=== PATIENT | male | born 1960 | race Caucasian/White ===

== ENCOUNTER 2016-10-29 15:01 | Emergency (ER) | payer SELFPAY ==
[2016-10-29] MEDS ORDERED: BABY ASPIRIN 81 MG CHEW PO ONE (15:10)
[2016-10-29] MEDS ORDERED: Nitrostat 0.4 MG (ED) SL ONE (15:10)
[2016-10-29] MEDS ORDERED: Sodium Chloride 0.9% 1000 ML 1,000 ML IV SCH (15:15)
[2016-10-29] MEDS ORDERED: Sodium Chloride 0.9% 1000 ML 1,000 ML ONE (15:25)
[2016-10-29] MEDS ORDERED: BABY ASPIRIN 81 MG CHEW ONE ×2 (15:25→15:27)
--- NOTE | 2016-10-29 15:32 | ERPHSYRPT ---
- History of Present Illness Time Seen by Provider: 10/29/16 15:29 Historian: patient Exam Limitations: no limitations Patient Subjective Stated Complaint: PT COMPLAINS OF CHEST PAIN TO BOTH RIGHT AND LEFT SIDE. OF CHEST STATES DOES RADIATES UP INTO BILATERAL SIDES OF HIS JAW PT DENIES ANY CARDIAC HISTORY STATES THAT HE. DOES TAKE A BABY ASA TODAY TOOK ONE THIS AM. STATES THAT HE DID GET SOB AND NAUSEATED WHEN THE PAIN STARTED Triage Nursing Assessment: PT ALERT WARM AND DRY RESP EASY NON LABORED EKG DONE AT BEDSIDE. Physician History: 56-year-old male came to the emergency room with complaining of bilateral lower chest pain which is soft stabbing in nature, radiating to the both side of the jaw. Patient denies any nausea, vomiting or diaphoresis. Patient did not have his same type of pain before. Timing/Duration: today Activities at Onset: none Quality: stabbing Location: substernal Chest Pain Radiation: jaw Severity of Pain-Max: moderate Severity of Pain-Current: moderate Modifying Factors: Improves With: nothing Associated Symptoms: denies symptoms, No palpitations, No shortness of breath, No hurts to breathe, No diaphoresis Aspirin Treatment Today: 81 mg x 1 Allergies/Adverse Reactions: No Known Drug Allergies Allergy (Unverified 03/28/12 16:57) Home Medications: Aspirin [Aspir 81] DAILY 03/28/12 [History] Atenolol DAILY 03/28/12 [History] Glipizide Xl 10 mg [Glucotrol Xl 10 MG] DAILY 03/28/12 [History] Metformin HCl 1000 mg [Glucophage 1000 MG] DAILY 03/28/12 [History] Hx Tetanus, Diphtheria Vaccination/Date Given: Yes Hx Influenza Vaccination/Date Given: No Hx Pneumococcal Vaccination/Date Given: No Immunizations Up to Date: Yes - Review of Systems Constitutional: No Fever, No Chills Eyes: No Symptoms Ears, Nose, & Throat: No Symptoms Respiratory: No Cough, No Dyspnea Cardiac: Chest Pain, No Edema, No Syncope Abdominal/Gastrointestinal: No Abdominal Pain, No Nausea, No Vomiting, No Diarrhea Genitourinary Symptoms: No Dysuria Musculoskeletal: No Back Pain, No Neck Pain Skin: No Rash Neurological: No Dizziness, No Focal Weakness, No Sensory Changes Psychological: No Symptoms Endocrine: No Symptoms All Other Systems: Reviewed and Negative - Past Medical History Pertinent Past Medical History: Yes Neurological History: TIA ENT History: No Pertinent History Cardiac History: Arrhythmia Respiratory History: No Pertinent History Endocrine Medical History: Diabetes Type II Musculoskeletal History: No Pertinent History GI Medical History: No Pertinent History History: No Pertinent History Psycho-Social History: No Pertinent History Male Reproductive Disorders: No Pertinent History Other Medical History: SLEEP APNEA - Past Surgical History Past Surgical History: Yes Cardiac: Cardiac Catheterization - Social History Smoking Status: Former smoker Exposure to second hand smoke: No Drug Use: none Patient Lives Alone: No - Nursing Vital Signs Nursing Vital Signs: Initial Vital Signs Temperature 97.9 F Temperature Source Oral Pulse Rate 81 Respiratory Rate 18 Blood Pressure [] 125/73 Pain Intensity 5 - Physical Exam General Appearance: no apparent distress, alert Eye Exam: PERRL/EOMI, eyes nml inspection Ears, Nose, Throat Exam: normal ENT inspection, moist mucous membranes Neck Exam: normal inspection, non-tender, supple, full range of motion Respiratory Exam: normal breath sounds, lungs clear, No respiratory distress Cardiovascular Exam: regular rate/rhythm, normal heart sounds Gastrointestinal/Abdomen Exam: soft, No tenderness, No mass Back Exam: normal inspection, No CVA tenderness, No vertebral tenderness Extremity Exam: normal inspection, normal range of motion Neurologic Exam: alert, oriented x 3, cooperative, normal mood/affect, sensation nml, No motor deficits Skin Exam: normal color, warm, dry SpO2: 95 Oxygen Delivery: Room Air - Course Nursing assessment & vital signs reviewed: Yes EKG Interpreted by Me: Sinus Rhythm - Radiology Exams Chest X-ray Interpretation: Reviewed by me, Negative Ordered Tests: Active Orders 24 hr Category Date Time Status EKG-ER Only STAT Care 10/29/16 15:10 Active CHEST 1 VIEW (PORTABLE) Stat Exams 10/29/16 15:11 Taken CBC W DIFF Stat Lab 10/29/16 15:32 Completed CMP Stat Lab 10/29/16 15:32 Completed TROPONIN Q3H Lab 10/29/16 15:30 Completed TROPONIN Q3H Lab 10/29/16 18:15 Ordered TROPONIN Q3H Lab 10/29/16 21:15 Ordered TROPONIN Q3H Lab 10/30/16 00:15 Ordered TROPONIN Q3H Lab 10/30/16 03:15 Ordered Medication Summary Generic Name Dose Route Start Last Admin Trade Name Freq PRN Reason Stop Dose Admin Sodium Chloride 1,000 mls @ 50 mls/hr 10/29/16 15:15 10/29/16 15:28 Sodium Chloride 0.9% 1000 Ml IV 11/28/16 15:14 50 mls/hr .Q20H OLEG Administration Discontinued Medications Generic Name Dose Route Start Last Admin Trade Name Kasie PRN Reason Stop Dose Admin Aspirin 324 mg 10/29/16 15:10 10/29/16 15:28 Baby Aspirin 81 Mg Chew PO 10/29/16 15:11 324 mg STAT ONE Administration Aspirin Confirm 10/29/16 15:25 Baby Aspirin 81 Mg Chew Administered 10/29/16 15:26 Dose 81 mg .ROUTE .STK-MED ONE Aspirin Confirm 10/29/16 15:27 Baby Aspirin 81 Mg Chew Administered 10/29/16 15:28 Dose 243 mg .ROUTE .STK-MED ONE Nitroglycerin 0.4 mg 10/29/16 15:10 10/29/16 15:24 Nitrostat 0.4 Mg (Ed) SL 10/29/16 15:11 0.4 mg STAT ONE Administration Lab/Rad Data: Laboratory Result Diagrams 10/29/16 15:32 10/29/16 15:32 Laboratory Results 10/29/16 10/29/16 10/29/16 Range/Units 15:32 15:32 15:30 WBC 8.5 (4.0-10.5) K/mm3 RBC 4.89 (4.1-5.6) M/mm3 Hgb 13.7 (12.5-18.0) gm/dl Hct 41.5 L (42-50) % MCV 84.9 (78-100) fl MCH 28.0 (26-32) pg MCHC 33.0 (32-36) g/dl RDW 15.1 H (11.5-14.0) % Plt Count 216 (150-450) K/mm3 MPV 10.1 H (6-9.5) fl Gran % 62.2 (36.0-66.0) % Lymphocytes % 28.3 (24.0-44.0) % Monocytes % 6.6 (0.0-12.0) % Eosinophils % 2.8 (0.00-5.0) % Basophils % 0.1 (0.0-0.4) % Basophils # 0.01 (0-0.4) Sodium 141 (136-145) mEq/L Potassium 4.5 (3.5-5.1) mEq/L Chloride 103 (98-107) mEq/L Carbon Dioxide 29.9 (21-32) mEq/L Anion Gap 12.7 (5-15) MEQ/L BUN 15 (9-20) mg/dL Creatinine 1.11 (0.55-1.30) mg/dl Estimated GFR > 60 ML/MIN Glucose 188 H (70-110) MG/DL Calcium 8.9 (8.5-10.1) mg/dL Total Bilirubin 0.40 (0.2-1.0) mg/dL AST 18 (15-37) U/L ALT 43 (12-78) U/L Alkaline Phosphatase 72 (46-116) U/L Troponin I < 0.017 (0.000-0.056) ng/ml Serum Total Protein 6.9 (6.4-8.2) gm/dL Albumin 3.3 L (3.4-5.0) g/dL - Progress Progress: improved Air Movement: good Blood Culture(s) Obtained: No Antibiotics given: No Counseled pt/family regarding: lab results, diagnosis, need for follow-up, rad results - Departure Time of Disposition: 16:41 Departure Disposition: Home Clinical Impression: Chest pain of uncertain etiology Type 2 diabetes mellitus Qualifiers: Diabetes mellitus complication status: with unspecified complications Diabetes mellitus prison insulin use: without buttermaker continuous churn use Qualified Code(s): E11.8 - Type 2 diabetes mellitus with unspecified complications Hypertension Qualifiers: Hypertension type: essential hypertension Qualified Code(s): I10 - Essential ( primary) hypertension Condition: Stable Critical Care Time: Yes Critical Care Time(excluding separately billable procedures): 30-74 minutes Referrals: GERRY KAPADIA [Primary Care Provider] - Instructions: Chest Pain Additional Instructions: Please follow the instructions given to you. Please take your medication as prescribed if given. If symptoms recur or get worse, come back to the emergency room if you cannot reach your primary care physician, or call your primary care physician for an appointment. Again if your symptoms get worse, come back to the emergency room. Thanks for visiting emergency room, and let us take care of you.
[2016-10-29 15:37] LABS: BASOPHIL % 0.1 % (0.0-0.4); Eosinophil % 2.8 % (0.00-5.0); Granulocytes % 62.2 % (36.0-66.0); Lymphocytes % 28.3 % (24.0-44.0); Mean Cell Volume 84.9 fl (78-100); Mean Platelet Volume 10.1 fl (6-9.5); Monocytes % 6.6 % (0.0-12.0); Platelet Count 216 K/mm3 (150-450); Red Blood Count 4.89 M/mm3 (4.1-5.6); Red Cell Distribution Width 15.1 % (11.5-14.0); White Blood Count 8.5 K/mm3 (4.0-10.5)
[2016-10-29 16:09] LABS: ALBUMIN 3.3 g/dL (3.4-5.0); ALKALINE PHOSPHATASE 72 U/L (46-116); ANION GAP 12.7 MEQ/L (5-15); BLOOD UREA NITROGEN 15 mg/dL (9-20); CHLORIDE 103 mEq/L (98-107); Carbon Dioxide 29.9 mEq/L (21-32); Glucose 188 MG/DL (70-110); Potassium 4.5 mEq/L (3.5-5.1); SGOT/AST 18 U/L (15-37); SGPT/ALT 43 U/L (12-78); SODIUM 141 mEq/L (136-145); Total Protein 6.9 gm/dL (6.4-8.2)
[2016-10-29 17:04] VITALS: BP 139/81; PULSE 72; O2SAT 99
--- NOTE | 2016-10-29 20:24 | XRAY ---
Indication: Chest pain. Comparison: None Portable chest demonstrates scattered calcified granulomas. No focal infiltrate, consolidation, or large effusion. Heart is not enlarged. Bony thorax intact. Impression: Nonacute chest. Evidence for old granulomatous disease.
== END 2016-10-29 17:03 | disposition home or self-care (01) ==
LOC: ED 15:01
DX: R07.89 Other chest pain (principal); E11.8 Type 2 diabetes mellitus with unspecified complications; I10 Essential (primary) hypertension; Z79.899 Other long term (current) drug therapy; Z79.84 Long term (current) use of oral hypoglycemic drugs; Z79.82 Long term (current) use of aspirin
CPT/HCPCS: 36000; 36415; 71010; 80053; 84484; 85025; 93005; 93041; 96360; 99284; 99285; A9270-GY

== ENCOUNTER 2019-01-09 10:57 | Emergency (ER) | payer OTHER ==
--- NOTE | 2019-01-09 11:19 | ERPHSYRPT ---
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 pt has no cardiac hx. pt took a ntg of his and he now arrives with complete resolution of his cp. pt is on plavix but has not taken any of his meds this am. pt is under a lot stress today. Timing/Duration: today Quality: sharpness, stabbing Location: other (bilat chest) Chest Pain Radiation: neck Severity of Pain-Max: mild Severity of Pain-Current: none Modifying Factors: Improves With: nitroglycerin (resolved) Associated Symptoms: denies symptoms Prior Chest Pain/Cardiac Workup: no prior chest pain, no prior cardiac workup Nitro Today/Relief: 0.4 mg x 1, complete relief Aspirin Treatment Today: 81 mg x 1 Allergies/Adverse Reactions: prochlorperazine [From Compazine] Adverse Reaction (Verified 01/09/19 11:17) Home Medications: Glipizide Xl 10 mg [Glucotrol Xl 10 MG] 10 mg BID 03/28/12 [History] Metformin HCl 1000 mg [Glucophage 1000 MG] 1,000 mg BID 03/28/12 [History] Atorvastatin Calcium 10 mg DAILY 01/09/19 [History] Clopidogrel Bisulfate [Plavix] 75 tablet DAILY 01/09/19 [History] Lisinopril 20 mg [Zestril 20 MG] 60 mg DAILY 01/09/19 [History] Munith-3 Fatty Acids/Fish Oil [Fish Oil 1,000 mg Capsule] 1,000 mg BID 01/09/19 [ History] Sertraline HCl [Zoloft] 100 mg PO DAILY 01/09/19 [History] Hx Tetanus, Diphtheria Vaccination/Date Given: Yes Hx Influenza Vaccination/Date Given: No Hx Pneumococcal Vaccination/Date Given: No - Review of Systems Constitutional: No Symptoms Eyes: No Symptoms Ears, Nose, & Throat: No Symptoms Respiratory: No Symptoms Cardiac: Chest Pain Abdominal/Gastrointestinal: No Symptoms Genitourinary Symptoms: No Symptoms Musculoskeletal: No Symptoms Skin: No Symptoms Neurological: No Symptoms Psychological: No Symptoms Endocrine: No Symptoms Hematologic/Lymphatic: No Symptoms Immunological/Allergic: No Symptoms All Other Systems: Reviewed and Negative - Past Medical History Pertinent Past Medical History: Yes Neurological History: TIA ENT History: No Pertinent History Cardiac History: Arrhythmia Respiratory History: No Pertinent History Endocrine Medical History: Diabetes Type II Musculoskeletal History: No Pertinent History GI Medical History: No Pertinent History History: No Pertinent History Psycho-Social History: No Pertinent History Male Reproductive Disorders: No Pertinent History Other Medical History: SLEEP APNEA - Past Surgical History Past Surgical History: Yes Cardiac: Cardiac Catheterization - Social History Smoking Status: Former smoker Exposure to second hand smoke: No Drug Use: none Patient Lives Alone: No - Nursing Vital Signs Nursing Vital Signs: Initial Vital Signs Temperature 97.4 F 01/09/19 10:58 Pulse Rate 81 01/09/19 10:58 Respiratory Rate 20 01/09/19 10:58 Blood Pressure 160/76 01/09/19 10:58 O2 Sat by Pulse Oximetry 95 01/09/19 10:58 Pain Scale Pain Intensity 0 - Physical Exam General Appearance: no apparent distress, alert, anxiety Eye Exam: PERRL/EOMI, eyes nml inspection Ears, Nose, Throat Exam: normal ENT inspection, moist mucous membranes Neck Exam: normal inspection, non-tender, supple, full range of motion Respiratory Exam: normal breath sounds, lungs clear, airway intact, No chest tenderness, No respiratory distress Cardiovascular Exam: regular rate/rhythm, normal heart sounds, normal peripheral pulses Gastrointestinal/Abdomen Exam: soft, normal bowel sounds, No tenderness Rectal Exam: not done Back Exam: normal inspection, normal range of motion, No CVA tenderness, No vertebral tenderness Extremity Exam: normal inspection, normal range of motion, pelvis stable Neurologic Exam: alert, oriented x 3, cooperative, quality control director II-XII nml as tested Skin Exam: normal color, warm, dry Lymphatic Exam: No adenopathy SpO2 Interpretation: normal O2 Delivery: Room Air - Course Nursing assessment & vital signs reviewed: Yes EKG Interpreted by Me: RATE (80), NORMAL INTERVALS, NORMAL QRS, Other ( comparison ekg 10/29/16. new findings of SI/QIII pattern otherwise no change. no acute ischemic changes. ) Ordered Tests: Active Orders 24 hr Category Date Time Status Customer Program Specialist STAT Care 01/09/19 11:19 Active EKG-ER Only STAT Care 01/09/19 11:19 Active IV Insertion STAT Care 01/09/19 11:19 Active Pulse Oximetry (ED) STAT Care 01/09/19 11:19 Active CHEST 1 VIEW (PORTABLE) Stat Exams 01/09/19 11:19 Completed CBC W DIFF Stat Lab 01/09/19 11:42 Completed CMP Stat Lab 01/09/19 11:42 Completed D-DIMER QUANTITATION Stat Lab 01/09/19 11:42 Completed NT PRO BNP Stat Lab 01/09/19 11:42 Completed PROTIME WITH INR Stat Lab 01/09/19 11:42 Completed TROPONIN Q3H Lab 01/09/19 11:42 Completed TROPONIN Q3H Lab 01/09/19 14:30 Ordered TROPONIN Q3H Lab 01/09/19 17:30 Ordered TROPONIN Q3H Lab 01/09/19 20:30 Ordered TROPONIN Q3H Lab 01/09/19 23:30 Ordered Medication Summary Discontinued Medications Generic Name Dose Route Start Last Admin Trade Name Freq PRN Reason Stop Dose Admin Aspirin 243 mg 01/09/19 11:19 01/09/19 11:31 Baby Aspirin 81 Mg Chew PO 01/09/19 11:20 243 mg STAT ONE Administration Aspirin Confirm 01/09/19 11:29 Baby Aspirin 81 Mg Chew Administered 01/09/19 11:30 Dose 243 mg .ROUTE .Buru Buru-MED ONE Lab/Rad Data: Laboratory Result Diagrams 01/09/19 11:42 01/09/19 11:42 Laboratory Results 01/09/19 01/09/19 01/09/19 Range/Units 11:42 11:42 11:42 WBC (4.0-10.5) K/mm3 RBC (4.1-5.6) M/mm3 Hgb (12.5-18.0) gm/dl Hct (42-50) % MCV (78-100) fl MCH (26-32) pg MCHC (32-36) g/dl RDW (11.5-14.0) % Plt Count (150-450) K/mm3 MPV (6-9.5) fl Gran % (36.0-66.0) % Eos # (Auto) (0-0.5) Absolute Lymphs (auto) (1.0-4.6) Absolute Monos (auto) (0.0-1.3) Lymphocytes % (24.0-44.0) % Monocytes % (0.0-12.0) % Eosinophils % (0.00-5.0) % Basophils % (0.0-0.4) % Absolute Granulocytes (1.4-6.9) Basophils # (0-0.4) PT 13.0 H (8.83-12.87) SECONDS INR 1.15 (0.8-3.0) D-Dimer 221 (215-500) ng/mL Sodium 135 L (137-145) mmol/L Potassium 4.5 (3.5-5.1) mmol/L Chloride 98 (98-107) mmol/L Carbon Dioxide 25 (22-30) mmol/L Anion Gap 16.6 H (5-15) MEQ/L BUN 16 (9-20) mg/dL Creatinine 0.66 (0.66-1.25) mg/dL Estimated GFR > 60.0 ML/MIN Glucose 423 H (74-106) mg/dL Calcium 9.3 (8.4-10.2) mg/dL Total Bilirubin 0.80 (0.2-1.3) mg/dL AST 38 (17-59) U/L ALT 51 H (0-50) U/L Alkaline Phosphatase 132 H (38-126) U/L Troponin I < 0.012 (0.000-0.034) ng/mL NT-Pro-B Natriuret Pep 17.4 (0-900) pg/mL Serum Total Protein 7.5 (6.3-8.2) g/dL Albumin 4.0 (3.5-5.0) g/dL 01/09/19 Range/Units 11:42 WBC 8.0 (4.0-10.5) K/mm3 RBC 5.36 (4.1-5.6) M/mm3 Hgb 14.5 (12.5-18.0) gm/dl Hct 44.7 (42-50) % MCV 83.4 (78-100) fl MCH 27.1 (26-32) pg MCHC 32.4 (32-36) g/dl RDW 15.2 H (11.5-14.0) % Plt Count 192 (150-450) K/mm3 MPV 10.8 H (6-9.5) fl Gran % 66.4 H (36.0-66.0) % Eos # (Auto) 0.17 (0-0.5) Absolute Lymphs (auto) 1.98 (1.0-4.6) Absolute Monos (auto) 0.53 (0.0-1.3) Lymphocytes % 24.8 (24.0-44.0) % Monocytes % 6.6 (0.0-12.0) % Eosinophils % 2.1 (0.00-5.0) % Basophils % 0.1 (0.0-0.4) % Absolute Granulocytes 5.28 (1.4-6.9) Basophils # 0.01 (0-0.4) PT (8.83-12.87) SECONDS INR (0.8-3.0) D-Dimer (215-500) ng/mL Sodium (137-145) mmol/L Potassium (3.5-5.1) mmol/L Chloride (98-107) mmol/L Carbon Dioxide (22-30) mmol/L Anion Gap (5-15) MEQ/L BUN (9-20) mg/dL Creatinine (0.66-1.25) mg/dL Estimated GFR ML/MIN Glucose (74-106) mg/dL Calcium (8.4-10.2) mg/dL Total Bilirubin (0.2-1.3) mg/dL AST (17-59) U/L ALT (0-50) U/L Alkaline Phosphatase (38-126) U/L Troponin I (0.000-0.034) ng/mL NT-Pro-B Natriuret Pep (0-900) pg/mL Serum Total Protein (6.3-8.2) g/dL Albumin (3.5-5.0) g/dL - Progress Progress: improved Air Movement: good Progress Note: 01/09/19 12:26 cxr-no acute process Blood Culture(s) Obtained: No Antibiotics given: No Counseled pt/family regarding: lab results, diagnosis, need for follow-up, rad results - Departure Departure Disposition: Home Clinical Impression: Chest pain Condition: Stable Critical Care Time: No Referrals: GERRY KAPADIA [ACTIVE STAFF] - Additional Instructions: Take your medications as prescribed. follow up with your primary doctor for further management
[2019-01-09] MEDS ORDERED: BABY ASPIRIN 81 MG CHEW ONE (11:29)
[2019-01-09] MEDS: BABY ASPIRIN 81 MG CHEW PO ONE (11:31)
[2019-01-09 11:39] VITALS: O2SAT 92
[2019-01-09 11:47] LABS: BASOPHIL % 0.1 % (0.0-0.4); Basophil (Absolute #) 0.01 (0-0.4); Eosinophil % 2.1 % (0.00-5.0); Eosinophil (Absolute #) 0.17 (0-0.5); Granulocyte Absolute (ANC) 5.28 (1.4-6.9); Granulocytes % 66.4 % (36.0-66.0); Hematocrit 44.7 % (42-50); Hemoglobin 14.5 gm/dl (12.5-18.0); Lymphocyte (Absolute #) 1.98 (1.0-4.6); Lymphocytes % 24.8 % (24.0-44.0); Mean Cell Volume 83.4 fl (78-100); Mean Corpuscular Hemoglobin 27.1 pg (26-32); Mean Corpuscular Hgb Concent. 32.4 g/dl (32-36); Mean Platelet Volume 10.8 fl (6-9.5); Monocyte (Absolute #) 0.53 (0.0-1.3); Monocytes % 6.6 % (0.0-12.0); Platelet Count 192 K/mm3 (150-450); Red Blood Count 5.36 M/mm3 (4.1-5.6); Red Cell Distribution Width 15.2 % (11.5-14.0)
[2019-01-09 12:00] LABS: INR 1.15 (0.8-3.0)
[2019-01-09 12:07] LABS: ALKALINE PHOSPHATASE 132 U/L (38-126); ANION GAP 16.6 MEQ/L (5-15); BLOOD UREA NITROGEN 16 mg/dL (9-20); CHLORIDE 98 mmol/L (98-107); Calcium 9.3 mg/dL (8.4-10.2); Carbon Dioxide 25 mmol/L (22-30); Creatinine 1 0.66 mg/dL (0.66-1.25); Glucose 423 mg/dL (74-106); NT PRO BNP 17.4 pg/mL (0-900); Potassium 4.5 mmol/L (3.5-5.1); SGOT/AST 38 U/L (17-59); SGPT/ALT 51 U/L (0-50); SODIUM 135 mmol/L (137-145); Total Protein 7.5 g/dL (6.3-8.2)
--- NOTE | 2019-01-09 12:08 | XRAY ---
Indication: Chest pain and throat tightness. Comparison: October 29, 2016. Portable chest again demonstrates normal heart and lungs. Bony thorax intact again with mild degenerative changes. No new/acute findings.
[2019-01-09 12:21] VITALS: BP 140/68; PULSE 80
== END 2019-01-09 12:44 | disposition home or self-care (01) ==
LOC: ED 10:57
DX: R07.9 Chest pain, unspecified (principal); E11.65 Type 2 diabetes mellitus with hyperglycemia; Z79.4 Long term (current) use of insulin; I10 Essential (primary) hypertension; Z86.73 Personal history of transient ischemic attack (TIA), and cerebral infarction without residual deficits; Z79.899 Other long term (current) drug therapy
CPT/HCPCS: 36000; 36415; 71045; 80053; 83880; 84484; 85025; 85379; 85610; 93005; 93041; 94760; 99284; A9270-GY